=== PATIENT | female | born 1970 | race Caucasian/White ===

== ENCOUNTER 2019-01-12 08:52 | Emergency (ER) | payer MEDICAID ==
[~2019-01-12] VITALS: Ht 157.5 cm; Wt 90.9 kg
[~2019-01-12 08:52] MED LIST: NORCO10T PO; PROM25TA14 PO
[2019-01-12 08:57] VITALS: BP 161/93
[2019-01-12 09:24] LABS: BASOPHILS % (AUTO) 0.6 % (0-1); EOSINOPHILS # (AUTO) 0.1 X10'3 (0-0.9); EOSINOPHILS % (AUTO) 1.5 % (0-6); HEMATOCRIT 43.7 % (35.0-45.0); HEMOGLOBIN 14.7 g/dl (12.0-16.0); LYMPHOCYTES # (AUTO) 1.4 X10'3 (1.1-4.8); LYMPHOCYTES % (AUTO) 33.1 % (21-51); MEAN CORPUSCULAR HEMOGLOBIN 28.8 PG (27.0-31.0); MEAN CORPUSCULAR HGB CONC 33.6 g/dL (33.0-36.5); MEAN CORPUSCULAR VOLUME 85.7 FL (78-98); MEAN PLATELET VOLUME 8.2 FL (7.4-10.4); MONOCYTES # (AUTO) 0.3 X10'3 (0-0.9); MONOCYTES % (AUTO) 6.6 % (2-12); NEUTROPHILS # (AUTO) 2.5 X10'3 (1.8-7.7); NEUTROPHILS % (AUTO) 58.2 % (42-75); PLATELET COUNT 214 X10'3 (140-440); RED CELL DISTRIBUTION WIDTH 13.5 % (11.5-14.5); WHITE BLOOD COUNT 4.4 X10'3 (4.5-11.0)
[2019-01-12 09:40] LABS: ALANINE AMINOTRANSFERASE 25 U/L (12-78); ALBUMIN 4.2 G/DL (3.4-5.0); ALBUMIN/GLOBULIN RATIO 1.3 (1.1-1.5); ALKALINE PHOSPHATASE 67 IU/L (46-116); ANION GAP 9 (8-16); ASPARTATE AMINO TRANSFERASE 17 U/L (10-37); BILIRUBIN,TOTAL 1.6 MG/DL (0.1-1.0); BLOOD UREA NITROGEN 12 MG/DL (7-18); BUN/CREATININE RATIO 11.9 (6.6-38.0); CALCIUM 9.4 MG/DL (8.5-10.1); CHLORIDE 107 MMOL/L (99-107); CREATININE 1.01 MG/DL (0.40-0.90); GLUCOSE 101 MG/DL (70-104); POTASSIUM 4.1 MMOL/L (3.5-5.1); SODIUM 141 MMOL/L (135-145); TOTAL CARBON DIOXIDE 25.1 MMOL/L (24-32); TOTAL PROTEIN 7.4 G/DL (6.4-8.2); eGFR 58 ML/MIN
[2019-01-12 09:51] LABS: CLARITY,URINE SLIGHTLY CLOUDY (Clear); COLOR,URINE YELLOW (Yellow); GLUCOSE, URINE NEGATIVE (Neg); KETONES,URINE NEGATIVE (Neg); LEUKOCYTE ESTERASE ,URINE NEGATIVE (Neg); NITRITES, URINE NEGATIVE (Neg); OCCULT BLOOD,URINE NEGATIVE (Neg); PH,URINE 5.5 (4.8-8.0); PROTEIN,URINE NEGATIVE (Neg); UROBILINOGEN,URINE 0.2 E.U/dL (0.2-1.0)
[2019-01-12 09:52] LABS: UA COLLECTION TYPE CLN CATCH MIDSTREAM; URINE HCG NEGATIVE (NEG)
[2019-01-12 09:59] LABS: BACTERIA,URINE NONE SEEN /HPF (Neg); MUCUS STRANDS FEW /LPF (Neg); RBC,URINE NONE SEEN /HPF (0-2); SQUAMOUS EPITHELIAL CELL,UR FEW /LPF (FEW); WBC,URINE 0-4 /HPF (0-4)
== END 2019-01-12 10:12 | disposition home or self-care (01) ==
LOC: ER 08:54
DX: R10.31 Right lower quadrant pain (principal); R30.0 Dysuria; R11.0 Nausea; Z90.49 Acquired absence of other specified parts of digestive tract; Z79.899 Other long term (current) drug therapy
CPT/HCPCS: 36415; 80053; 81001; 81025; 85025; 99283

== ENCOUNTER 2019-12-21 12:21 | Outpatient (CLI) | payer MEDICAID | END 2019-12-21 23:59 | disposition home or self-care (01) | LOC: CARD DIAG 12:21 | PROVIDERS: ATTEND Internal Medicine Rheumatology | DX: I34.0 Nonrheumatic mitral (valve) insufficiency (principal); M34.9 Systemic sclerosis, unspecified | CPT/HCPCS: 93306 ==

== ENCOUNTER 2020-01-27 08:45 | Outpatient (CLI) | payer MEDICAID ==
[~2020-01-27] VITALS: Ht 157.5 cm; Wt 90.7 kg
[2020-01-27] MEDS ORDERED: albuterol 2.5 MG/3 ML nebule NEB ONE (09:40)
== END 2020-01-27 23:59 | disposition home or self-care (01) ==
LOC: RT 08:45
PROVIDERS: ATTEND Internal Medicine Rheumatology
DX: M34.9 Systemic sclerosis, unspecified (principal)
CPT/HCPCS: 94060; 94729; 94760

== ENCOUNTER 2020-12-31 09:56 | Emergency (ER) | payer MEDICAID ==
[~2020-12-31] VITALS: Ht 157.5 cm; Wt 81.2 kg
[2020-12-31 10:08] VITALS: BP 130/91
[2020-12-31 11:09] LABS: BASOPHILS % (AUTO) 0.7 % (0-1); EOSINOPHILS # (AUTO) 0.1 X10'3 (0-0.9); EOSINOPHILS % (AUTO) 1.2 % (0-6); HEMATOCRIT 38.7 % (35.0-45.0); HEMOGLOBIN 13.2 g/dl (12.0-16.0); LYMPHOCYTES # (AUTO) 1.3 X10'3 (1.1-4.8); LYMPHOCYTES % (AUTO) 23.2 % (21-51); MEAN CORPUSCULAR HGB CONC 34.1 g/dL (33.0-36.5); MEAN CORPUSCULAR VOLUME 82.2 FL (78-98); MONOCYTES # (AUTO) 0.3 X10'3 (0-0.9); NEUTROPHILS # (AUTO) 3.8 X10'3 (1.8-7.7); NEUTROPHILS % (AUTO) 69.9 % (42-75); PLATELET COUNT 215 X10'3 (140-440); RED BLOOD COUNT 4.71 X10'6 (4.20-5.60); RED CELL DISTRIBUTION WIDTH 15.1 % (11.5-14.5); WHITE BLOOD COUNT 5.4 X10'3 (4.5-11.0)
[2020-12-31 11:34] LABS: ALANINE AMINOTRANSFERASE 59 U/L (12-78); ALBUMIN 3.6 G/DL (3.4-5.0); ALKALINE PHOSPHATASE 86 IU/L (46-116); ANION GAP 8 (8-16); ASPARTATE AMINO TRANSFERASE 57 U/L (10-37); BLOOD UREA NITROGEN 10 MG/DL (7-18); BUN/CREATININE RATIO 10.8 (6.6-38.0); CALCIUM 8.9 MG/DL (8.5-10.1); CHLORIDE 108 MMOL/L (99-107); CREATININE 0.93 MG/DL (0.40-0.90); GLUCOSE 93 MG/DL (70-104); SODIUM 142 MMOL/L (135-145); TOTAL CARBON DIOXIDE 25.7 MMOL/L (24-32); TOTAL PROTEIN 7.1 G/DL (6.4-8.2); eGFR 64 ML/MIN
[2020-12-31] MEDS ORDERED: bacitracin 15gm ointment TP ONE (12:35)
[2020-12-31] MEDS ORDERED: TETanus/Pertussis (Acell)/Diphther VAC/PF (Tdap-Adult) 0.5ml syringe IMVAC ONE (12:35)
[2020-12-31] MEDS ORDERED: clindamycin 150mg capsule PO STA (13:12)
[2020-12-31] MEDS ORDERED: ONDA8TAB13 PO (13:18)
[2020-12-31] MEDS ORDERED: CLIN300C71 PO (13:18)
[2020-12-31] MEDS ORDERED: IBUP-1984 PO (13:19)
[2020-12-31] MEDS ORDERED: LIDOcaine 1% W/epiNEPHrine 1:100,000 20ml vial SQ ONE (13:20)
== END 2020-12-31 13:39 | disposition home or self-care (01) ==
LOC: ER 09:56
DX: L03.213 Periorbital cellulitis (principal)
CPT/HCPCS: 36415; 71045; 80053; 83605; 84145; 85025; 87040; 90715; 99284

== ENCOUNTER 2024-11-12 13:25 | Emergency (ER) | payer MEDICAID, OTHER ==
[~2024-11-12] VITALS: Ht 157.5 cm; Wt 77.1 kg
[~2024-11-12 13:25] MED LIST changes: +ONDA-245 PO
[2024-11-12 13:34] VITALS: BP 166/112; PULSE 130; TEMP 98.2; O2SAT 98
[2024-11-12] MEDS ORDERED: HYDR-3965 PO (14:33)
--- NOTE | 2024-11-12 14:37 | Physician Documentation ---
History of Present Illness ~ Chief Complaint: Shoulder pain Stated Complaint: WC BACK PAIN Time Seen by MD: 14:03 Primary Medical Doctor: RODNEY CHOPRA Bhavya is a 54-year-old female who presents to the emergency department for evaluation left thoracic back spasms. She has been followed by worker's comp. She most recently has started physical therapy which she feels may be exacer bating her symptoms. She is unaware if she has had dedicated rib x-rays since her fall. She is otherwise without shortness of breath and chest pain and/or cough or fever. Tetanus within 5 years?: No Medication Reconciliation Allergies: Coded Allergies: acetaminophen (Verified Allergy, Unknown, night terrors, 11/12/24) hydrocodone (Verified Allergy, Unknown, night terrors, 11/12/24) Scheduled Lidocaine (Lidoderm), 1 PATCH TD DAILY Tizanidine Hcl (Zanaflex), 1 TAB PO Q8H Scheduled PRN Hydrocodone Bit/Acetaminophen 10/325 MG* ([place] 10/325 MG*), 1 TAB PO Q4H PRN, (Reported) Ondansetron 8mg ODT (Ondansetron Odt), 1 TAB PO TID PRN for nausea/vomiting Promethazine HCl (Promethazine HCl), 25 MG PO Q6H PRN, (Reported) Past Medical History Past Medical History: Hernia Past Surgical History: abdominal surgery, appendectomy, cholecystectomy, tonsillectomy, other Alcohol Use: None Drug Use: none Lives with: Family Lives In: Home Review of Systems All Other Systems at this time: Reviewed and Negative Respiratory: Reports: no symptoms reported Cardiovascular: Reports: no symptoms reported Musculoskeletal: Reports: see HPI Physical Exam Vital Signs: Temperature: 98.2, Source: Temporal, Heart Rate: 130, Respiratory Rate: 16, BP: 166/112, Pulse Oximetry: 98, Weight: 77.100 Oxygen Flow Rate: 0 General Appearance: alert, WD/WN, mild distress EENT: PERRL/EOMI Neck: normal inspection Respiratory: lungs clear Chest: normal inspection Shoulder: other (Thoracic spasms to eight nine and 10) Distal Function: normal pulse Neurologic: oriented x4 Psychiatric: normal mood/affect Progress Results/Orders Results/Orders Orders - KELLIE OG PAC RibkoUnilat (11/12/24 ) Completed Orders - KELLIE OG PAC Lidocaine 5% Patch (Lidoderm 5% Patch) (11/12/24 14:35) Ribs,Unilat (11/12/24 ) Ketorolac Trometh 30mg/Ml Vial (Toradol (11/12/24 14:35) Lidocaine 5% Patch (Lidoderm 5% Patch) (11/12/24 14:35) Medications Received in ER Medications (Trade) Dose Ordered Sig/Ortega Route PRN Reason Start Time Stop Time Status Last Admin Dose Admin (Toradol inj. 30mg/ml) 60 mg ONCE ONCE IM 11/12/24 14:35 11/12/24 14:41 DC 11/12/24 14:46 60 MG (Lidoderm 5% Patch) 1 patch ONCE ONCE TP 11/12/24 14:35 11/12/24 14:41 DC 11/12/24 14:47 1 PATCH Vital Signs 11/12/24 11/12/24 11/12/24 13:34 14:35 14:46 Temp 98.2 Pulse 130 Resp 16 18 B/P (MAP) 166/112 Pulse Ox 98 O2 Flow Rate 0 Medical Decision Making Additional Comments Examination and history consistent with acute on chronic thoracic lumbar pathology likely that of muscle spasms due to recent fall. Dedicated x-ray imaging today is reassuring for no acute fractures. Shared decision-making to discontinue baclofen and begin Zanaflex and patient will follow up with the worker's comp provider. No clinical suspicion for new pathology. She will be safely discharged from the emergency department after receiving Toradol injection in the Lidoderm patch for comfort and support. Departure Disposition: HOME / SELF CARE / HOMELESS Impression: Primary Impression: Spasm of thoracic back muscle Condition: Improved Discharge Instructions: Muscle Cramps and Spasms, Auwf-of-Faom Additional Instructions: Your x-ray imaging today are reassuring. Please discontinue Baclofen and begin Zanaflex as directed. Make follow up appointment with your worker's comp physician for additional evaluation and management. Thank you for visiting emergency department [facility]. Referrals: NO PRIMARY CARE PROVIDER (PCP) Prescriptions Lidocaine (Lidoderm) 5 % Adh..patch 1 PATCH TD DAILY, #10 PATCH Apply 1 patch daily for 12 hours then off for 12 hours May sub 15 grams 4 pct lidocaine cream if patches are cost peohibitive Prov: KELLIE OG PAC 11/12/24 Tizanidine Hcl (ZANAFLEX) 4 Mg Tablet 1 TAB PO Q8H for 10 Days, #30 TAB 0 Refills Prov: KELLIE OG PAC 11/12/24 Education Educated: Patient Educated regarding: diagnosis, treatment, prognosis, need for follow up Signature Scribe Signature: . Attestation: . KELLIE OG PAC Nov 12, 2024 14:37
[2024-11-12 14:46] VITALS: RESP 18
[2024-11-12] MEDS: ketorolac trometh 30MG/ML vial 30 MG/ML VIAL IM ONE (14:46)
[2024-11-12] MEDS ORDERED: TIZA4TAB11 PO (15:04)
[2024-11-12] MEDS ORDERED: LIDO-52 TD (15:05)
--- NOTE | 2024-11-12 15:34 | RADIOLOGY REPORT ---
FRONTAL CHEST AND left RIB RADIOGRAPHS HISTORY: Pain with inspiration TECHNIQUE: Multiple views of the left ribs with frontal view of the chest. COMPARISON: None. FINDINGS: Heart size and pulmonary vasculature within normal limits. Linear atelectasis or scarring in the left lung base. Calcified plaque projects over the aortic arch. No airspace consolidation, pleural effusion, or pneumothorax. There are 12 left ribs. No displaced left rib fracture. Impression: 1. No evidence of a displaced left rib fracture. 2. No acute cardiopulmonary abnormality.
== END 2024-11-12 15:50 | disposition home or self-care (01) ==
LOC: ER 13:26
DX: M62.830 Muscle spasm of back (principal); Z88.5 Allergy status to narcotic agent; Z90.49 Acquired absence of other specified parts of digestive tract; Z90.89 Acquired absence of other organs; Z79.899 Other long term (current) drug therapy
CPT/HCPCS: 71100; 96372; 99283; J1885

== ENCOUNTER 2024-11-30 09:47 | Emergency (ER) | payer BC, OTHER ==
[~2024-11-30] VITALS: Ht 157.5 cm; Wt 76.2 kg
[~2024-11-30 09:47] MED LIST changes: +LIDO-52 TD; +TIZA4TAB11 PO
[2024-11-30 09:57] VITALS: TEMP 98
[2024-11-30 10:31] LABS: MEAN PLATELET VOLUME 6.3 FL (7.4-10.4); RED CELL DISTRIBUTION WIDTH 13.8 % (11.5-14.5)
--- NOTE | 2024-11-30 10:33 | ELECTROCARDIOGRAPH REPORT ---
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
--- NOTE | 2024-11-30 10:34 | Physician Documentation ---
History of Present Illness ~ Chief Complaint: Shortness of Breath Stated Complaint: FLUID ON LUNGS Time Seen by MD: 10:06 Primary Medical Doctor: RODNEY Source: patient Mode of Arrival: POV Exam Limitations: no limitations HPI Chief Complaint: Cough, left lateral pleuritic chest pain Caveat: None Independent Historians: None History of Present Illness: Patient is a 54-year-old woman who was referred here by her primary care doctor for evaluation of left pleural fluid. Patient has a history of scleroderma. Patient's symptoms began on October 27 when she was injured at work. She thought she had injured her ribs and has been having pain in the left lateral lower chest every time she takes a deep breath or coughs. Patient was seen in the ER in November 12 and had x-rays of her chest and ribs. At that time her x-rays were unremarkable. Patient then developed a cough approximately 10 days ago. Cough is nonproductive. No fever. Patient had a CT scan of her thoracic spine because of the left midthoracic back pain. CT scan of the thoracic spine was done on November 24. It showed left basilar pleural fluid collection with atelectasis in a portion of the left lower lobe. Patient was referred here by her primary care doctor to make sure that fluid was not infected. Review of systems: All systems were reviewed and are negative except for what is indicated in the history of present illness. Past Medical History: Scleroderma Past Surgical History: Appendectomy, cholecystectomy, tonsillectomy Social History: No tobacco use, no alcohol use, no drug use Medications: Reviewed as documented Nursing Notes Allergies: Reviewed as documented in Nursing Notes Medication Reconciliation Scheduled Lidocaine (Lidoderm), 1 PATCH TD DAILY Tizanidine Hcl (Zanaflex), 1 TAB PO Q8H Scheduled PRN Hydrocodone Bit/Acetaminophen 10/325 MG* ([place] 10/325 MG*), 1 TAB PO Q4H PRN, (Reported) Ondansetron 8mg ODT (Ondansetron Odt), 1 TAB PO TID PRN for nausea/vomiting Promethazine HCl (Promethazine HCl), 25 MG PO Q6H PRN, (Reported) Past Medical History Past Medical History: Hernia Past Surgical History: abdominal surgery, appendectomy, cholecystectomy, tonsillectomy, other Alcohol Use: None Drug Use: none Lives with: Family Lives In: Home Review of Systems All Other Systems at this time: Reviewed and Negative ROS Patient denies any other acute symptoms other than above. All other systems are negative Physical Exam Vital Signs: RN Vital Signs have been reviewed: Yes, Temperature: 98.0, Source: Temporal, Heart Rate: 105, Respiratory Rate: 18, BP: 154/107, Pulse Oximetry: 96, Weight: 76.250 Pulse Oximetry Reflects: adequate oxygenation Physical Exam General Appearance: No distress HEENT: Normal OP, moist oral mucosa, PERRL, EOMI Neck: supple, normal ROM, trachea midline Pulmonary: No respiratory distress, CTA, BS equal Cardiac: RRR, no murmur, rub or gallop, GI: nondistended, soft, nontender, normal bowel sounds, no guarding, no rebound Chest: Patient has left lateral rib tenderness on palpation. No pleural rub, patient appears to be in pain when she tries to take a deep breath and splints Extremities: normal ROM, no swelling, non-tender Skin: intact, dry, warm, no rashes Neuro: AAOx3, speech is clear, no focal motor weakness Psych: normal affect, good eye contact, no apparent hallucination, normal speech Progress Results/Orders Results/Orders Orders - PHILIPP ECHEVARRIA MD Monitor (11/30/24 10:16) Saline Lock (11/30/24 10:16) Cta Chest Pe (11/30/24 11:00) Covid19 Binax Poc Result Entry (11/30/24 10:16) Chest,Two Views (11/30/24 10:16) Completed Orders - PHILIPP ECHEVARRIA MD Electrocardiogram (11/30/24 10:16) Cbc/Diff (11/30/24 10:16) Cta Chest Pe (11/30/24 11:00) PBNP (11/30/24 10:16) CMP (11/30/24 10:16) Chest,Two Views (11/30/24 10:16) Iohexol 350mg/Ml 100ml (Omnipaque 350mg/ (11/30/24 10:38) Influenza Type A&B Rapid Test (11/30/24 10:24) Vital Signs 11/30/24 11/30/24 11/30/24 11/30/24 09:57 10:32 10:32 11:30 Temp 98.0 Pulse 105 95 102 Resp 18 18 16 B/P (MAP) 154/107 127/79 (95) 126/81 (96) Pulse Ox 96 98 98 O2 Flow Rate 0 0 11/30/24 12:47 Pulse 105 Resp 16 B/P (MAP) 137/101 Pulse Ox 98 Laboratory Tests Test 11/30/24 10:13 11/30/24 10:24 11/30/24 10:26 White Blood Count 7.8 Red Blood Count 4.54 Hemoglobin 11.9 L Hematocrit 35.6 Mean Corpuscular Volume 78.4 Mean Corpuscular Hemoglobin 26.3 L Mean Corpuscular Hemoglobin Concent 33.5 Red Cell Distribution Width 13.8 Platelet Count 515 H Mean Platelet Volume 6.3 L Neutrophils (%) (Auto) 75.6 H Lymphocytes (%) (Auto) 16.7 L Monocytes (%) (Auto) 5.0 Eosinophils (%) (Auto) 2.0 Basophils (%) (Auto) 0.7 Neutrophils # (Auto) 5.9 Lymphocytes # (Auto) 1.3 Monocytes # (Auto) 0.4 Eosinophils # (Auto) 0.2 Basophils # (Auto) 0.1 CBC Comment Sodium Level 141 Potassium Level 3.3 L Chloride Level 104 Carbon Dioxide Level 27.0 Anion Gap 10 Blood Urea Nitrogen 12 Creatinine 0.84 Estimated GFR/1.73 m2 70 BUN/Creatinine Ratio 14.3 Glucose Level 96 Calcium Level 9.8 Total Bilirubin 0.8 Aspartate Amino Transf (AST/SGOT) 17 Alanine Aminotransferase (ALT/SGPT) 46 Alkaline Phosphatase 328 H Pro-B-Type Natriuretic Peptide 66 Total Protein 8.3 H Albumin 3.0 L Globulin 5.3 H Albumin/Globulin Ratio 0.6 L Chemistry Comments Influenza Type A Antigen Negative Influenza Type B Antigen Negative SARS-CoV-2 Antigen (Rapid) Negative Medical Decision Making Additional info obtained from: old records Findings Differential diagnosis includes but is not limited to: Pleural effusion, loculated pleural effusion, cancer, trauma, pulmonary embolus, sarcoidosis Chest x-ray, single view, indication: Pleuritic chest pain Independent interpretation: Small loculated pleural effusion left lower lobe, normal mediastinum, normal cardiac silhouette Laboratory data independent interpretation: CBC: Unremarkable, WBC normal at 7.8 CMP: Unremarkable Emergency department course/medical decision-making: Patient presents with pleuritic chest pain in the left lateral posterior rib that has been present for approximately one month after a minor injury at work. Incidentally she was found to have a small left loculated pleural effusion. Pleural effusion is small and I am recommending referral to pulmonology an outpatient thoracentesis. Pulmonary embolus was ruled out by CTA. Test results and treatment plan all reviewed with the patient. She is instructed she should get referred to pulmonology and for outpatient thoracentesis. Patient is stable for discharge. No evidence of a medical or surgical emergency but she needs further outpatient workup. Note: Heart score is not applicable here in this case. EKG and troponin were not performed. Consultation/communications: Attempts were made to reach Dr. Rey her primary care doctor at [facility] with out success Heart Score: 0 Differential Dx:Considerations: Include: other (See above) Departure Time of Disposition: 12:29 Disposition: 01 HOME / SELF CARE / HOMELESS Impression: Primary Impression: Loculated pleural effusion Condition: Stable Discharge Instructions: Pleural Effusion, Pleurisy, [id number] Additional Instructions: YOUR PLEURAL EFFUSION IS SMALL AND LOCULATED. RECOMMEND REFERRAL TO [facility] FOR OUTPATIENT DIAGNOSTIC THORACENTESIS. RECOMMEND REFERRAL TO DR. DURHAM OR DR. FALL. RETURN TO THE ER IF YOUR SYMPTOMS WORSEN. Referrals: NO PRIMARY CARE PROVIDER (PCP) Education Educated: Patient Educated regarding: diagnosis, treatment, need for follow up Signature Scribe Signature: No scribe Attestation: No scribe PHILIPP ECHEVARRIA MD Nov 30, 2024 10:34
[2024-11-30 10:41] LABS: CREATININE 0.84 MG/DL (0.40-0.90); TOTAL CARBON DIOXIDE 27.0 MMOL/L (24-32); eCRCL 60 ML/MIN; eGFR 70 ML/MIN
[2024-11-30 10:50] LABS: PRO BRAIN NATRIURETIC PEPTIDE 66 PG/ML (0-125)
--- NOTE | 2024-11-30 10:57 | RADIOLOGY REPORT ---
CHEST RADIOGRAPH Indication: COUGH, LEFT PLEURAL FLUID Technique: Frontal and lateral view of the chest was obtained Comparison: CHEST,SINGLE VIEW on DOS: 12/31/20 FINDINGS: Lines and Tubes: None Lungs: Left lower lobe airspace disease. Pleura: Small left pleural effusion. No pneumothorax. Cardiomediastinal contours: Unremarkable Bones: Unremarkable IMPRESSION: Left lower lobe airspace disease and small left pleural effusion.
[2024-11-30 11:07] LABS: INFLUENZA TYPE A ANTIGEN RAPID NEGATIVE (Negative); INFLUENZA TYPE B ANTIGEN RAPID NEGATIVE (Negative)
--- NOTE | 2024-11-30 11:38 | RADIOLOGY REPORT ---
CLINICAL INFORMATION: Shortness of breath. Chest pain. TECHNIQUE: Axial CTA images of the chest were obtained after the uneventful administration of 100 mL of Omnipaque 350 IV contrast. Coronal and sagittal reformatted images and MIP images were obtained, reviewed, and stored. One or more of the following dose reduction techniques were used: Automated exposure control. Adjustment of mA and/or kV according to patient size. CTDIvol = 13.97, 19.39, 0.07, 0.07 mGy DLP = 464.59 mGy-cm COMPARISON: None FINDINGS: Pulmonary arteries: No evidence of pulmonary embolism. Aorta: No aneurysm or dissection. Cardiac: Heart size is within normal limits. Mediastinum/ramon: No mass or adenopathy. Heterogeneous thyroid gland partially imaged with subcentimeter nodules in the right thyroid lobe. Lungs: Small loculated left pleural fluid collection with overlying atelectasis and/or consolidation. Chest wall: No mass or other abnormality. Upper abdomen: Cholecystectomy. Otherwise grossly unremarkable. Bones: No acute fracture or suspicious intraosseous lesions. IMPRESSION: 1. No evidence of pulmonary embolism. 2. Small, loculated appearing left pleural fluid collection with overlying atelectasis and/or consolidation.
[2024-11-30 12:47] VITALS: BP 137/101; PULSE 105; RESP 16; O2SAT 98
== END 2024-11-30 12:54 | disposition home or self-care (01) ==
LOC: ER 09:48
DX: J90 Pleural effusion, not elsewhere classified (principal); Z90.49 Acquired absence of other specified parts of digestive tract; Z90.89 Acquired absence of other organs; Z20.822 Contact with and (suspected) exposure to COVID-19
CPT/HCPCS: 36415; 71046; 71275; 80053; 83880; 85025; 87804; 87811; 93005; 99285; Q9967

== ENCOUNTER 2025-01-06 08:42 | Outpatient (CLI) | payer BC ==
[2025-01-06 09:56] VITALS: BP 130/96; PULSE 103; RESP 18; O2SAT 98
[2025-01-06 09:59] VITALS: PULSE 103; RESP 16; O2SAT 98
--- NOTE | 2025-01-06 14:23 | PROCEDURE NOTE - Respiratory ---
Procedure Note-Respiratory Providers to CC Copies To 1: AKIN DURBIN MD Procedure Name: This is a spirometry study dated January 06, 2025. There was also a 6 minute walk test completed on the same date. Spirometry measurements: Both the forced vital capacity and the FEV1 show moderate reduction. The FEV1 ratio is in the normal range. All of the flow rate measurements are in the normal range. Bronchodilator was not administered as part of the study. Conclusion: This study is abnormal. There is evidence for a moderate restrictive ventilatory defect. I see no evidence of obstructive lung disease based on these results. Compared to a previous study dated January 2020, the forced vital capacity has dropped from 2.39 L to 2.15 L. the FEV1 measurement has dropped from 1.96 L to 1.78 L over the past five years. Close pulmonary follow-up is recommended for this patient. Repeat pulmonary function testing is recommended within the next 1-2 years. A patient completed a 6 minute walk protocol. The patient was able to walk 1242 ft over 6 minutes. The saturation of oxygen range from 97 down to 92% during the walking protocol. The patient was breathing room air during this 6 minute walk test. We have no prior 6 minute walk results for comparison. MARYURI SIERRA MD Jan 06, 2025 14:23
== END 2025-01-06 23:59 | disposition home or self-care (01) ==
LOC: RT 08:42
PROVIDERS: ATTEND Family Medicine
DX: R07.81 Pleurodynia (principal)
CPT/HCPCS: 94010; 94760